=== PATIENT | male | born 1950 | race Caucasian/White ===

== ENCOUNTER → 2020-03-17 | Outpatient (REF) | payer OTHER ==
[2020-03-17 18:37] LABS: HEMOGLOBIN 14.8 g/dl (13.5-17.5); MEAN CORPUSCULAR HEMOGLOBIN 31.4 pg (27.0-33.0); MEAN CORPUSCULAR HGB CONC 32.9 g/dl (32.0-36.5); MEAN CORPUSCULAR VOLUME 95.3 fl (80.0-96.0); PLATELET COUNT, AUTOMATED 237 10^3/uL (150-450); RED BLOOD COUNT 4.72 10^6/uL (4.30-6.10); WHITE BLOOD COUNT 7.2 10^3/uL (4.0-10.0)
== END ==
LOC: M LAB REF 16:56
PROVIDERS: ATTEND Nurse Practitioner Adult Health
DX: R06.02 Shortness of breath (principal)

== ENCOUNTER → 2020-05-28 | Outpatient (CLI) | payer OTHER ==
[~2020-05-28] MED LIST: ISOVUE-370 76% 100ML VIAL As Ordered ONE
--- NOTE | 2020-06-28 10:07 | REP ---
CONTRAST ENHANCED CHEST CT CLINICAL: Shortness of breath. TECHNIQUE: Axial contrast enhanced images from the thoracic inlet to the upper abdomen using 75 mL Isovue-370 intravenous contrast material with coronal and sagittal reformations. FINDINGS: There is a tksab-fu-neldgonm area of consolidation along the subpleural right lower lobe (images 62-90). Remainder of the lung ramírez are clear. No further consolidation, nodule, or mass. No effusion. No pneumothorax. Tracheobronchial tree is patent. No significant adenopathy is appreciated. The mediastinum demonstrates relatively normal thoracic aorta, pulmonary vasculature, and heart/pericardium. Musculoskeletal structures without acute osseous abnormality. Limited upper abdomen demonstrates normal bilateral adrenal glands. IMPRESSION: Jixle-it-uskjtafk area opacity along the subpleural right lower lobe. Follow-up to resolution is recommended. No associated adenopathy or effusion. MTDD
== END ==
LOC: M RAD 15:24
PROVIDERS: ATTEND Nurse Practitioner Adult Health
DX: R91.8 Other nonspecific abnormal finding of lung field (principal); R06.02 Shortness of breath
CPT/HCPCS: 71260; Q9967

== ENCOUNTER → 2021-01-17 | Outpatient (CLI) | payer OTHER ==
--- NOTE | 2021-01-17 09:58 | REPPI ---
INDICATION: J90 PLEURAL EFFUSION, NOT ELSEWHERE CLASSIFIED COMPARISON: CT dated 05/28/2020 TECHNIQUE: PA and lateral. FINDINGS: Mediastinum and cardiac silhouette are normal. Bilateral lower lobe opacities are appreciated along with small to moderate left pleural effusion. An area of opacity along the lateral aspect of the right lower lobe appears similar to reported findings on CT dated 05/28/2020. No pneumothorax. Skeletal structures intact. IMPRESSION: Bilateral lower lobe opacities and small to moderate left pleural effusion. Chest CT with contrast is recommended for further investigation. <Electronically signed by John Plascencia > 01/17/21 [id number]
== END ==
LOC: M PLAIMG 09:26
PROVIDERS: ATTEND Thoracic Surgery (Cardiothoracic Vascular Surgery)
DX: J90 Pleural effusion, not elsewhere classified (principal)

== ENCOUNTER → 2021-02-03 | Outpatient (CLI) | payer MEDICARE, OTHER ==
[~2021-02-03] MED LIST changes: +ASPI81CH33 PO; +ATOR40TA75 PO; +FLOM0.4C39 PO; -ISOVUE-370 76% 100ML VIAL As Ordered ONE; +LIDOCAINE 1% MDV 20ML VIAL As Ordered ONE; +WARF-18 PO
[2021-02-03 10:52] LABS: PLATELET COUNT, AUTOMATED 226 10^3/uL (150-450)
[2021-02-03 11:05] LABS: INR 1.07; PARTIAL THROMBOPLASTIN TIME 25.8 SECONDS (24.2-38.5); PROTHROMBIN TIME 14.1 SECONDS (12.5-14.3)
[2021-02-03 11:33] LABS: TOTAL PROTEIN 7.1 GM/DL (6.4-8.2)
--- NOTE | 2021-02-03 11:53 | REP ---
INDICATION: POST LEFT THORA, 2 VIEW. COMPARISON: 01/17/2021. TECHNIQUE: Two views chest. FINDINGS: There is decreased amount of left pleural fluid, which has almost completely resolved. There does appear to be a tiny amount of left pleural fluid/thickening remaining. There is no pneumothorax. There are mild bibasilar parenchymal opacities. Heart and mediastinum are unchanged. IMPRESSION: No pneumothorax status post left thoracentesis. Significant decrease in the left pleural effusion. <Electronically signed by Junaid Sauer > 02/03/21 [id number]
[2021-02-03 12:13] LABS: PH BODY FLUID 7.773 UNITS (NOT ESTABLISHED); SOURCE, BODY FLUID pH PLEURAL
[2021-02-03 12:17] LABS: APPEARANCE, BODY FLUID HAZY (CLEAR); PLEURAL FL COLOR PALE YELLOW (COLORLESS); SOURCE, BODY FLUID PLEURAL
[2021-02-03 12:29] LABS: AMYLASE, BODY FLUID 27 U/L (NOT ESTABLISHED); LDH, BODY FLUID 80 U/L (NOT ESTABLISHED); SOURCE, BODY FLUID AMYLASE PLEURAL; SOURCE, BODY FLUID GLUCOSE PLEURAL; SOURCE, BODY FLUID LDH PLEURAL; SOURCE, BODY FLUID TOT PROTEIN PLEURAL
[2021-02-03 13:15] VITALS: BP 102/61
--- NOTE | 2021-02-03 17:22 | REP ---
INDICATION: LT PLEURAL EFFUSION / LABS 1ST. COMPARISON: None. TECHNIQUE: The procedure was performed under the direct supervision of Dr. Sauer. The risks and benefits of the procedure were explained to the patient and informed consent was obtained. The left pleural effusion was localized using ultrasound guidance. The skin was prepped and draped in a sterile fashion. 1% lidocaine was used as a local anesthetic. An 8 Bulgarian multi side hole catheter was inserted using trocar technique. 1030 cc of yellow fluid was withdrawn with a sample sent to the lab for analysis. The patient tolerated the procedure well and there were no immediate complications. After the appropriate amount to monitor convalescence the patient was discharged from the department. FINDINGS: None IMPRESSION: Ultrasound-guided left thoracentesis yielding 1030 cc of yellow fluid. <Electronically signed by Uziel Rowe > 02/03/21 [id number] <Electronically signed by Junaid Sauer > 02/03/21 [id number]
== END ==
LOC: M IRPRO 09:48
PROVIDERS: ATTEND Thoracic Surgery (Cardiothoracic Vascular Surgery)
DX: J90 Pleural effusion, not elsewhere classified (principal)

== ENCOUNTER → 2021-02-14 | Outpatient (CLI) | payer MEDICARE ==
[~2021-02-14] MED LIST changes: -LIDOCAINE 1% MDV 20ML VIAL As Ordered ONE
--- NOTE | 2021-02-14 13:35 | REPPI ---
INDICATION: J90 PLEURAL EFFUSION, NOT ELSEWHERE CLASSFIED COMPARISON: 01/17/2021 TECHNIQUE: PA and lateral. FINDINGS: Bibasilar opacities and moderate pleural effusions have increased from prior examination. Visualized portions of the mediastinum and cardiac silhouette are relatively stable. No pneumothorax. Skeletal structures intact. IMPRESSION: Moderate bibasilar opacities and pleural effusions increased from prior examination. <Electronically signed by John Plascencia > 02/14/21 [id number]
== END ==
LOC: M PLAIMG 08:20
PROVIDERS: ATTEND Thoracic Surgery (Cardiothoracic Vascular Surgery)
DX: J90 Pleural effusion, not elsewhere classified (principal)